=== PATIENT | female | born 1940 | race Hispanic/Latino ===

== ENCOUNTER 2016-08-25 18:23 | Emergency (ER) | payer MEDICARE, MEDICAID ==
[~2016-08-25] VITALS: Ht 152.4 cm; Wt 93.2 kg
[2016-08-25 18:28] VITALS: BP 153/87; PULSE 85; RESP 20; O2SAT 96
--- NOTE | 2016-08-25 19:40 | ED.REPORT ---
HPI-Extremity Problem Lower Date of Service August 25, 2016 ED Provider: Irene WuO. A 76 year old female with a history of DM and hypertension presents to the ED accompanied by her family with left hip pain onset five days ago. The pain radiates down her left leg. She was seen in clinic three days ago and was discharged with Ibuprofen, which she has used with no relief. The patient denies other symptoms. She speaks Ivorian and her family was translating. Nursing Notes Stated Complaint: LEFT HIP PAIN Chief Complaint: Extremity Trauma Nursing Notes Reviewed: Yes Allergies: Coded Allergies: No Known Allergies (Unverified , 08/25/16) General Time Seen by MD: 19:40 Chief Complaint Other (Left Hip Pain) Hx Obtained From: Patient, Daughter Arrived By: Walk-in Onset Occurred: 5 days ago Symptom Duration: Since onset Location: : Hip left: Leg left Quality: Painful Severity: Current: Moderate Severity: Maximum: Moderate Pertinent Negative: Relieved by nothing Immunizations: Unknown Recent Healthcare: Recent doctor visit Past Medical History Past Medical History DM type 2 Hypertension Past Surgical History None reported Smoking History Unknown if Ever Smoker Social History Other Social History: Good social support Ambulatory Status Independent Review of Systems Constitutional: Denies: Fever Musculoskeletal: Reports: Extremity pain (Left leg), Joint pain (Left hip) Complete sys rev & neg: except as marked. Respiratory: Denies: Non-productive cough, Shortness of breath GI: Denies: Diarrhea, Vomiting Physical Exam Initial Vital Signs Vital Signs (First) Date Time Temp Pulse Resp B/P Pulse Ox O2 Delivery O2 Flow Rate FiO2 08/25/16 18:28 36.3 85 20 153/87 96 Room Air Initial VS: Reviewed Head / Eyes: Atraumatic, Normocephalic ENT: Conjunctiva normal, No scleral icterus Neck: Supple, Full range of motion Respiratory: Breath sounds normal, Clear to auscultation, No respiratory distress Cardiovascular: Regular rate & rhythm, Heart sounds normal Abdomen / GI: Soft, Non-tender Skin: Warm, Dry, No cyanosis Neurologic: Alert, Oriented, Nonfocal Psychiatric: Mood/affect normal, Behavior normal, Normal thought content Lower Extremity / Pelvis / MS: Atraumatic Pain with ROM of left hip Interpretation & Diagnostics Lab Results Interpretation Result Diagram: 08/25/16203408/25/162034 Test 08/25/16 20:35 08/25/16 21:50 White Blood Count 11.3th/mm3 (3.8-10.1) Red Blood Count 4.51mil/mm3 (3.90-5.20) Hemoglobin 12.7g/dL (12.0-15.6) Hematocrit 39.6% (35.0-46.0) Mean Corpuscular Volume 87.8fL (81-100) Mean Corpuscular Hemoglobin 28.2pg (27.0-35.0) Mean Corpuscular Hemoglobin Concent 32.1% (32.0-37.0) Red Cell Distribution Width 13.2% (12.3-15.4) Platelet Count 260bil/L (150-400) Neutrophils (%) (Auto) 45.1% (40-74) Lymphocytes (%) (Auto) 36.2% (14-46) Monocytes (%) (Auto) 9.7% (4-12) Eosinophils (%) (Auto) 6.2% (0-5) Basophils (%) (Auto) 2.4% (0-3) Sodium Level 134mEq/L (134-144) Potassium Level 4.3mEq/L (3.5-5.2) Chloride Level 95mEq/L (97-108) Carbon Dioxide Level 24mmol/L (18-29) Blood Urea Nitrogen 17mg/dL (8-27) Creatinine 0.54mg/dL (0.57-1.00) Estimat Glomerular Filtration Rate 158mL/min (>59) Glucose Level 241mg/dL (60-99) Calcium Level 9.6mg/dL (8.5-10.1) Total Bilirubin 0.2mg/dL (0.0-1.2) Aspartate Amino Transf (AST/SGOT) 14U/L (0-50) Alanine Aminotransferase (ALT/SGPT) 12U/L (0-32) Alkaline Phosphatase 76U/L (25-165) C-Reactive Protein 0.3mg/dL (0.0-0.5) Total Protein 7.5g/dL (6.4-8.4) Albumin 4.0g/dL (3.4-5.0) Hold [place] Top Tube Received (Received) Urine Color Yellow (YELLOW) Urine Appearance Clear (CLEAR,HAZY) Urine pH 5.5 (5.0-8.0) Urine Specific [place] 1.020 (1.003-1.035) Urine Protein Negativemg/dL (NEG,TRACE) Urine Glucose (UA) 100mg/dL (NEGATIVE) Urine Ketones Tracemg/dL (NEGATIVE) Urine Occult Blood Negative (NEGATIVE) Urine Nitrite Negative (NEGATIVE) Urine Bilirubin Negative (NEGATIVE) Urine Urobilinogen Normalmg/dL (NORMAL) Urine Leukocyte Esterase Negative (NEGATIVE) Urine RBC 0-2/hpf (0-2) Urine WBC 6-10/hpf (0-5) Urine Epithelial Cells Moderate/hpf (NONE-MOD) Urine Crystals None seen (NONE SEEN) Urine Bacteria Few/hpf (NONE-FEW) Urine Hyaline Casts None/lpf (NONE) Urine Granular Casts None seen (NONE SEEN) Urine Waxy Casts None seen (NONE SEEN) Urine Red Blood Cell Casts None seen (NONE SEEN) Urine White Blood Cell Casts None seen (NONE SEEN) Urine Mucus None seen (None Seen) Urine Trichomonas None seen (NONE SEEN) Urine Yeast None (NONE SEEN) Urine Culture Reflexed Indicated X-Ray Interpretation Xray Interpretation: IMPRESSION: No acute radiographic findings. If pain persists, repeat study in 5-7 days is recommended to exclude occult fracture. Dictated by: Goldie Fernández M.D. on 08/25/2016 at 20:33 X-Ray Ordered: Pelvis, Hip left Interpretation / Wet Read by: Interpret - Radiologist Re-Eval/Medical Decision Re-Evaluation/Progress : Time of Eval: 21:25 Patient Status: Condition improved Re-Evaluation/Progress Note: Patient is feeling much better. Discussed with patient x-ray and lab results, diagnosis, and plan for discharge if urine sample labs are unremarkable. Follow-up and return to the ER instructions given. Patient agrees with plan for care and all questions were addressed. Counseled Regarding: Diagnosis, Lab results, Need for follow-up, When/why to return to ED Discharge & Departure Impression: Primary Impression: Lumbar back pain with radiculopathy affecting left lower extremity Disposition: Home Discharge Condition All VS Reviewed: Yes Condition: Improved Patient Instructions: Lumbar Radiculopathy (GEN) Additional Instructions: There was not a fracture identified on your x-ray. If pain persists however repeat imaging in about a week is recommended. I suspect that your pain is due to a pinched nerve in your back. This is leading to what is called sciatica or lumbar radiculopathy. You may take the Motrin as instructed by your primary care physician. For breakthrough pain take 1-2 [place] every 6 hours. This medication can be habit forming and it is constipating. Be careful as this can also increase your risk of falling. Do not drive or drink alcohol or consume acetaminophen while taking the [place]. Return if any problems or any new or worsening symptoms. We will culture the urine sample. If this comes back positive you will need to be on antibiotics. Discuss this when you follow up next week. Call Saturday to set up follow-up for next week. GOOGLE TRANSLATE ---- No haba kevin fractura identificada en ortiz radiografa. Si el dolor persiste, sin embargo, repetir imgenes en aproximadamente kevin semana se recomienda. Sospecho que ortiz dolor se debe a un nervio pellizcado en la espalda. [place] est llevando a lo que se llama citica o radiculopata lumbar. Usted puede elias el Motrin seg n las instrucciones de ortiz mdico de atencin primaria. Para el dolor de la brecha tome 1-2 [place] cada 6 horas. Esta medicacin puede ser la formacin de h bito y es constipante. Tenga cuidado ya que esto tambin puede aumentar ortiz riesgo de caerse. No conduzca ni corn[place] alcohol ni consuma acetaminofn mientras nacho el [place]. Regresar si hay problemas o sntomas nuevos o que empeoran. Cultivaremos la muestra de orina. Si esto vuelve positivo usted necesitar estar en los antibiticos. Analice esto cuando usted siga la prxima semana. Llame el lunes para establecer el seguimiento de la prxima semana. Referrals: [facility] (PCP) [employer] Attestation Portions of this note were transcribed by Danita Rossi. I, Dr. Angulo, personally performed the history, physical exam, and medical decision-making; I reviewed and confirmed the accuracy of the information in the transcribed note. Signed by: Agnes Howard, 08/25/2016, 23:55 copies to: [facility] Todd P DO August 25, 2016 19:40 DANITA ROSSI August 25, 2016 20:04
[2016-08-25] MEDS ORDERED: HYDROcodone-APAP 5-325 mg Tablet PO ONE (20:00)
--- NOTE | 2016-08-25 20:36 | DRSVH ---
PROCEDURE: X-RAY PELVIS W/LAT HIP (LT) ([id number]) INDICATIONS: hip and back pain TECHNIQUE: AP pelvis with lateral view(s) of the left hip(s). COMPARISON: None. FINDINGS: Bones: No fractures or dislocations. Pelvic ring appears intact. No suspicious bony lesions. Moder ate to severe degenerative changes are present within the visualized portions of lumbar spine. Soft tissues: The visualized bowel gas pattern is normal. No suspicious soft tissue calcifications. IMPRESSION: No acute radiographic findings. If pain persists, repeat study in 5-7 days is recommende d to exclude occult fracture. Dictated by: Goldie Fernández M.D. on 08/25/2016 at 20:33 Approved by: Goldie Fernández M.D. on 08/25/2016 at 20:34
[2016-08-25 20:58] LABS: BASOPHILS % (AUTO) 2.4 % (0-3); EOSINOPHILS % (AUTO) 6.2 % (0-5); MONOCYTES % (AUTO) 9.7 % (4-12); Mean Corpuscular Hemoglobin 28.2 pg (27.0-35.0); Mean Corpuscular Volume 87.8 fL (81-100); NEUTROPHILS % (AUTO) 45.1 % (40-74); Platelet Count 260 bil/L (150-400)
[2016-08-25] MEDS ORDERED: _HYDROcodone/APAP 5-325 mg Tablet PO PRN (21:20)
[2016-08-25] MEDS ORDERED: _Ondansetron ODT 4 mg Tablet PO PRN (21:20)
[2016-08-25 23:04] LABS: APPEARANCE,URINE CLEAR (CLEAR,HAZY); COLOR,URINE YELLOW (YELLOW); OCCULT BLOOD,URINE NEGATIVE (NEGATIVE); PH,URINE 5.5 (5.0-8.0); UROBILINOGEN,URINE NORMAL (NORMAL)
[2016-08-25 23:09] VITALS: BP 152/76; PULSE 97; RESP 18; O2SAT 98
== END 2016-08-25 23:33 | disposition home or self-care (01) ==
LOC: SED 18:23
DX: M54.16 Radiculopathy, lumbar region (principal); E11.9 Type 2 diabetes mellitus without complications; I10 Essential (primary) hypertension